=== PATIENT | female | born 1955 | race Two or more races ===

== ENCOUNTER 2019-12-16 07:07 | Day surgery (SDC) | payer MEDICARE ==
[2019-12-16] MEDS ORDERED: PROPOFOL 10 MG/ML VIAL IV ONE (07:08)
[2019-12-16] MEDS ORDERED: LIDOCAINE 2% MDV (20MG/ML) 20ML VIAL IV ONE (07:08)
[2019-12-16] MEDS ORDERED: FENTANYL PF 100MCG/2ML VIAL IV ONE (07:08)
[2019-12-16] MEDS ORDERED: MIDAZOLAM HCL 2MG/2ML VIAL IV ONE (07:08)
[2019-12-16] MEDS ORDERED: RINGERS SOLUTION,LACTATED 1,000 ML IV ONE (07:43)
[2019-12-16] MEDS ORDERED: BUPIVACAINE 0.5% W/EPI MPF 30 ML VIAL SQ ONE (09:22)
[2019-12-16] MEDS ORDERED: DEXAMETHASONE PRESERVATIVE FREE 10MG/ML VIAL SQ ONE (09:22)
[2019-12-16] MEDS ORDERED: LIDOCAINE 1% W/EPI 1:100,000 MDV 20 ML VIAL SQ ONE (09:22)
--- NOTE | 2019-12-16 09:55 | Operative Note - [place] ---
DATE OF SURGERY: 12/16/2019 PREOPERATIVE DIAGNOSIS: CERVICAL SPONDYLOSIS WITHOUT MYELOPATHY, ICD-10 CODE M47.812. OPERATION: RADIOFREQUENCY RHIZOTOMY BILATERAL CERVICAL FACETS C4-C5 AND C5-C6. SURGEON: Lasha Azar D.O. ANESTHESIA PROVIDER: Gaurang Gray CRNA INDICATION: This patient presents with pain which is primary neck. Her pain level 0-10 today is an 8 out of 10. Diagnostic studies reveal multiple level spondylosis of the facets with disk abnormalities including C4-C5 and C5-C6. A previous facet series had resulted in 75% relief. Physical therapy and biomechanical treatments in the past have not appreciably helped. Due to the failure of her previous therapies and the success of the facet series, she presents today for rhizotomy for more middle or intermediate [employer] principal relief. PROCEDURE: Intravenous line, vital sign monitoring, IV sedation, prepped and draped, sterile technique. The patient was positioned prone. Sterile prep, sterile technique. Imaging for guidance. Local for infiltration. Facet levels at C4-C5 and C5-C6 were identified and marked bilaterally, skin infiltrated. A 20-gauge rhizotomy cannula was positioned at each of the sites bilaterally. Stimulation trial was conducted. Rhizotomy burn performed at 80 degrees for 90 seconds at each of the sites. A local with antiinflammatory was then injected through the needle into the locations. 1 ml of local mixed with a dilution of Dexamethasone 0.1 mg was given at each of the sites. The needle was removed, the areas are cleaned, topical antibiotic, and sterile dressing was applied. We will monitor and evaluate the overall effectiveness. JOB NUMBER: [id number] MTDD
== END 2019-12-16 10:05 | disposition home or self-care (01) ==
LOC: SUR 07:07
PROVIDERS: ATTEND Pain Medicine Interventional Pain Medicine
DX: M47.812 Spondylosis without myelopathy or radiculopathy, cervical region (principal); I10 Essential (primary) hypertension; K21.9 Gastro-esophageal reflux disease without esophagitis; G25.81 Restless legs syndrome; G47.33 Obstructive sleep apnea (adult) (pediatric)
CPT/HCPCS: 64633; 64634; 01936; J1100; J3010; J7120